=== PATIENT | male | born 1970 | race Hispanic/Latino ===

== ENCOUNTER 2016-05-06 15:53 | Emergency (ER) | payer OTHER ==
[~2016-05-06] VITALS: Ht 162.6 cm; Wt 68.0 kg
--- NOTE | 2016-05-06 16:16 | ED GI/GU/ABDOMINAL COMPLAINT ---
History of Present Illness General Chief Complaint: Abdominal Pain/Flank Pain Stated Complaint: LOWER ABD PAIN Source: patient, family, old records, assortment planner Exam Limitations: language barrier Vital Signs & Intake/Output Vital Signs & Intake/Output Vital Signs Date Time Temp Pulse Resp B/P Pulse O2 O2 Flow FiO2 Ox Delivery Rate 05/06 1953 78 16 115/66 96 Room Air 05/06 1902 97.3 78 18 137/74 97 Room Air 05/06 1743 76 20 134/80 98 Room Air 05/06 1600 97.7 76 16 157/78 98 Room Air Allergies Coded Allergies: No Known Allergies (05/06/16) Reconcile Medications Oxycodone HCl/Acetaminophen (Percocet 5-325 MG Tablet) 5 MG-325 MG TABLET 1 TAB PO BID PRN PAIN Temazepam (Restoril) 30 MG CAPSULE 1 CAP PO QPM SLEEP (Reported) Triage Note: PT IS HAVING PAIN IN HIS TESTICLES AND BLADDER. PT HAVING PROBLEMS URINATING. PT STATES HE VOIDED 2 HOURS AGO ONLY A LITTLE. PT IS MOVING HIS BOWELS BUT STATES IT HURTS TO . PT STATES THE PAIN ALL STARTED 3 WEEKS AGO. PT STATES HIS PAIN HAS INCREASED TODAY TO THE POINT HE CAN'T TOLERATE IT. Triage Nurses Notes Reviewed? yes Onset: Abrupt Duration: day(s): (WORSE X 3 DAYS), week(s): (3) Timing: recent history Quality/Severity: aching, burning, moderate Severity Numbers: 7 Location: suprapubic, scrotal Radiation: no radiation Activities at Onset: none Prior Abdominal Problems: none No Modifying Factors: none Associated Symptoms: DENIES HPI: This is a 46-year-old male with history of kidney stones presents with family for evaluation complaining of suprapubic abdominal pain that is radiating into his groin and testicles. He states the pain has been present for the past 2 weeks however worse over the past 3 days. He denies any nausea or vomiting and states his symptoms improve after urinating. He denies any nausea vomiting diarrhea. No change in his bowel movements no rectal pain. No new sexual partners no rashes to his skin. He denies any swelling to his scrotum. No history of abdominal surgeries in the past no chest pain or shortness of breath. No hematuria, no dysuria (LORIN QIU,SUKHJINDER) Past History Travel History Traveled to [place] past 21 day No Medical History Any Pertinent Medical History? see below for history Renal: KIDNEY STONES Surgical History Surgical History: non-contributory Psychosocial History What is your primary language Portuguese Tobacco Use: Never used ETOH Use: occasional use Illicit Drug Use: denies illicit drug use Family History Hx Contributory? No (SUKHJINDER STALLINGS) Review of Systems Review of Systems Constitutional: Reports: see HPI. All Other Systems: Reviewed and Negative Comments Review of systems: See HPI, All other systems negative. Constitutional, no chills no fever, no malaise HEENT: No visual changes no sore throat no congestion, no ear pain Cardiovascular: No chest pain , no palpitation Skin, no rashes, no change in skin Respiratory: No dyspnea no cough no sputum GI: No nausea no vomiting, no diarrhea, : No dysuria No hematuria, Muscle skeletal: No joint pain, no joint swelling, no back pain Neurologic: no headache Psych: No stress Heme/endocrine: No bruising no bleeding Immunology: No lymphadenopathy (SUKHJINDER STALLINGS) Physical Exam Physical Exam General Appearance: well developed/nourished, alert, awake Gastrointestinal: normal bowel sounds, soft, non-tender Comments: Well-developed well-nourished person in no acute distress HEENT: Normal EENT exam; PERRL, EOMI, HEAD is atraumatic. moist mucous membranes. Neck: Supple, normal range of motion Back: Nontender, no CVA tenderness. Full range of motion Cardiovascular: Regular rate and rhythms no murmurs rubs Respiratory: Chest nontender.There were no bony deformities, no asymmetry. No respiratory distress. Patient speaking in full complete sentences. Breath sounds clear to auscultation bilaterally: NO W/R/R Abdomen: Soft, suprapubic tenderness no palpable hernia nondistended, no appreciable organomegaly. Normal bowel sounds. No rebound/guarding Male : Normal external genitalia, testes nontender. No scrotal swelling or mases, No lesions/discharge. Extremity: No edema, full range of motion of extremities, Neuro: Alert oriented x3, motor sensory normal,There were no obvious focal neurologic abnormalities. Skin: No appreciable rash on exposed skin, skin is warm and dry. Psych: Mood and affect is normal, memory and judgment is normal. Core Measures ACS in differential dx? No Severe Sepsis Present: No Septic Shock Present: No (SUKHJINDER STALLINGS) Progress Differential Diagnosis: bowel obstruction, inflamm bowel dis, orchitis, prostatitis, perforated viscous, pyelonephritis, SBO, STD, testicular torsion, ureterolithiasis, urinary retention, urethritis, UTI/pyelo Plan of Care: Orders Procedure Date/time Status COMPREHENSIVE METABOLIC PANEL 05/06 1625 Complete CBC WITHOUT DIFFERENTIAL 05/06 162 Complete URINALYSIS 05/06 1611 Complete Laboratory Tests 05/06/16 1630: Anion Gap 14, Estimated GFR > 60, BUN/Creatinine Ratio 14.4, Glucose 109 H, Calcium 9.8, Total Bilirubin 0.7, AST 22, ALT 27, Alkaline Phosphatase 86, Total Protein 8.0, Albumin 4.5, Globulin 3.5, Albumin/Globulin Ratio 1.3, CBC w Diff NO MAN DIFF REQ, RBC 5.50, MCV 89.4, MCH 29.8, RDW 13.2, MPV 8.1, Gran % 71.0, Lymphocytes % 18.6 L, Monocytes % 8.7, Eosinophils % 1.4, Basophils % 0.3, Absolute Granulocytes 7.1 H, Absolute Lymphocytes 1.9, Absolute Monocytes 0.9 H, Absolute Eosinophils 0.1, Absolute Basophils 0, PUBS MCHC 33.3, Urine Color YEL, Urine Clarity CLEAR, Urine pH 6.0, Ur Specific Purdys >= 1.030, Urine Protein TRACE H, Urine Ketones TRACE H, Urine Nitrite NEG, Urine Bilirubin NEG , Urine Urobilinogen 0.2, Ur Leukocyte Esterase NEG, Ur Microscopic SEDIMENT EXAMINED, Urine RBC RARE, Urine Mucus RARE, Urine Hemoglobin NEG, Urine Glucose NEG Labs ordered old records reviewed patient making a Toradol 30 IV Dilaudid 1 mg IV 05/06/2016 5:43:28 PM discussed with the patient at length all of his lab results CT findings he reports the pain improved however is not returning. He clinically appears well EP Dilaudid 1 mg IV ordered ultrasound ordered, case d/w dr aleman 05/06/2016 7:15:33 PM discussed with the patient at length all of his ultrasound findings. Patient reports symptoms have improved he is visiting from [place] I provided him with primary care follow-up while he is here for the next month I advised however that if the symptoms worsen or he develops fever chills nausea vomiting or any other concerns to return to the emergency room. Discussed with them that there is no clear identified source for the patient's symptoms at this time for bland diet clear liquids. Close follow-up advised return with any concerns. We'll plan I discussed with the patient at length all of their results, need for close follow up with their primary care physician. This week. I answered all of their questions, they feel comfortable with the plan and follow-up care. I discussed the medications that they will receive with the patient. I gave them signs and symptoms that could indicate an adverse reaction. I have advised them to limit their activities until they can see how they respond to the medication. (LORIN QIU,SUKHJINDER) Diagnostic Imaging: Viewed by Me: CT Scan. Discussed w/RAD: CT Scan. Radiology Impression: PATIENT: SORAYA ROSENTHAL PRESENT AGE: 46 PATIENT ACCOUNT NO: [id number] : 69 LOCATION: [facility] ORDERING PHYSICIAN: SUKHJINDER QIU SERVICE DATE: 05/06/16 EXAM TYPE: CAT - CT ABD & PELVIS W/O IV CONTRAS EXAMINATION: CT ABDOMEN AND PELVIS WITHOUT CONTRAST CLINICAL INFORMATION: Left lower quadrant abdominal pain. COMPARISON: None. TECHNIQUE: Multidetector volumetric imaging was performed from the superior aspect of the liver through the pubic symphysis. Sagittal and coronal reformatted images were obtained on the technologist's workstation. DLP: 305.29 mGy-cm. FINDINGS: LUNG BASES: The visualized lung bases are unremarkable. LIVER, GALLBLADDER, AND BILIARY TREE: The liver is normal in size, shape, and attenuation. No focal hepatic lesion or biliary ductal dilatation is present. Status post cholecystectomy. PANCREAS: Unremarkable. SPLEEN: Unremarkable. ADRENAL GLANDS: Unremarkable. KIDNEYS AND URETERS: Less than 1 mm size stone in the midpole left kidney axial image 228 (3). No additional renal stone. No ureteral stone. No hydronephrosis. BLADDER: Unremarkable. GASTROINTESTINAL TRACT : The small and large bowel are unremarkable. The appendix is unremarkable. ABDOMINAL WALL: No significant hernia is appreciated. LYMPH NODES: Normal. VASCULAR: Unremarkable. PELVIC VISCERA: Unremarkable. OSSEOUS STRUCTURES: Unremarkable. IMPRESSION: No acute abnormality CT scan abdomen pelvis. DICTATED BY: SOMAR BATISTA MD DATE/TIME DICTATED:05/06/161716 ASSORTMENT PLANNER:CLEMENTE DATE/TIME TRANSCRIBED:05/06/161716 CONFIDENTIAL, DO NOT COPY WITHOUT APPROPRIATE AUTHORIZATION. <Electronically signed in Other Vendor System> SIGNED BY: OSMAR BATISTA MD 05/06/161731, PATIENT: SORAYA ROSENTHAL PRESENT AGE: 46 PATIENT ACCOUNT NO: [id number] : LOCATION: [facility] ORDERING PHYSICIAN: SUKHJINDER QIU SERVICE DATE: -1737 EXAM TYPE: US - US-TESTICULAR EXAMINATION: US SCROTUM CLINICAL INFORMATION: Bilateral testicular pain. Evaluate for torsion. COMPARISON: None. TECHNIQUE: A sonogram of the scrotum was performed assessing mcintyre-scale appearance and color Doppler flow. FINDINGS: RIGHT: Right testicle measures 5.4 x 2.8 x 3.3 cm, volume 35.4 mL. Parenchymal echotexture is normal. No focal testicular parenchymal lesions are visualized. Normal symmetric intratesticular flow is visualized. Right epididymal head is normal in size. Trace amount of fluid is seen in the right scrotal sac, likely physiologic. No significant hydrocele. Slightly dilated veins are seen in the right hemiscrotum, consistent with a small varicocele. LEFT: Left testicle measures 5.2 x 2.5 x 3.6 cm, volume 33.2 mL. Parenchymal echotexture is normal. No focal testicular parenchymal lesions are visualized. Normal symmetric intratesticular flow is visualized. Left epididymal head is normal in size. Trace amount of physiologic free fluid is seen in the left hemiscrotum. No left hydrocele or varicocele is seen. IMPRESSION: 1. No evidence of testicular torsion or epididymoorchitis. 2. Small right-sided varicocele. DICTATED BY: LATASHA ANGEL MD DATE/TIME DICTATED:1855 ASSORTMENT PLANNER:CLEMENTE DATE/TIME TRANSCRIBED:05/06/161855 CONFIDENTIAL, DO NOT COPY WITHOUT APPROPRIATE AUTHORIZATION. <Electronically signed in Other Vendor System> SIGNED BY: LATASHA ANGEL MD 05/06/161903 Initial ED EKG: none (LORIN QIU,SUKHJINDER) Departure Departure Time of Disposition: 1908 Disposition: HOME OR SELF CARE Condition: Stable Clinical Impression Primary Impression: Abdominal pain Secondary Impressions: Varicocele Referrals: PATIENT HAS NO PRIMARY CARE DR (PCP/Family) Additional Instructions: Follow-up with your primary care physician on Saturday. Percocet for breakthrough pain return with any concerns Departure Forms: Customer Survey General Discharge Information Prescriptions: Current Visit Scripts Oxycodone HCl/Acetaminophen (Percocet 5-325 MG Tablet) 1 TAB PO BID PRN PAIN #10 TAB (SUKHJINDER STALLINGS) PA/HOPPER FEEDER Co-Sign Statement Statement: ED Attending supervision documentation- [] I saw and evaluated the patient. I have also reviewed all the pertinent lab results and diagnostic results. I agree with the findings and the plan of care as documented in the PA's/HOPPER FEEDER's documentation. X I have reviewed the ED Record and agree with the PA's/HOPPER FEEDER's documentation. [] Additions or exceptions (if any) to the PAs/HOPPER FEEDER's note and plan are summarized below: [] (ALEE JIMENEZ,MAHESH)
[2016-05-06] MEDS ORDERED: RESTORIL30 M1 PO (16:40)
[2016-05-06 16:43] LABS: ABSOLUTE BASOPHIL COUNT 0 /CUMM (0.0-0.2); ABSOLUTE EOSINOPHIL COUNT 0.1 /CUMM (0.0-0.7); ABSOLUTE GRANULOCYTE CT 7.1 /CUMM (1.4-6.5); ABSOLUTE LYMPH COUNT 1.9 /CUMM (1.2-3.4); ABSOLUTE MONOCYTE COUNT 0.9 /CUMM (0.10-0.60); BASOPHIL % 0.3 % (0.0-2.0); EOSINOPHIL % 1.4 % (0-5); HEMATOCRIT 49.2 % (42-52); MEAN CORPUSCULAR HGB 29.8 PG (27.0-31.0); MEAN CORPUSCULAR HGB CONC 33.3 G/DL (33.0-37.0); MEAN CORPUSCULAR VOLUME 89.4 FL (80.0-94.0); MEAN PLATELET VOLUME 8.1 FL (7.4-10.4); PLATELET COUNT 345 /CUMM (130-400); RBC DISTRIBUTION WIDTH 13.2 % (11.5-14.5)
--- NOTE | 2016-05-06 17:32 | CT SCAN REPORT ---
EXAMINATION: CT ABDOMEN AND PELVIS WITHOUT CONTRAST CLINICAL INFORMATION: Left lower quadrant abdominal pain. COMPARISON: None. TECHNIQUE: Multidetector volumetric imaging was performed from the superior aspect of the liver through the pubic symphysis. Sagittal and coronal reformatted images were obtained on the technologist's workstation. DLP: 305.29 mGy-cm. FINDINGS: LUNG BASES: The visualized lung bases are unremarkable. LIVER, GALLBLADDER, AND BILIARY TREE: The liver is normal in size, shape, and attenuation. No focal hepatic lesion or biliary ductal dilatation is present. Status post cholecystectomy. PANCREAS: Unremarkable. SPLEEN: Unremarkable. ADRENAL GLANDS: Unremarkable. KIDNEYS AND URETERS: Less than 1 mm size stone in the midpole left kidney axial image 228 (3). No additional renal stone. No ureteral stone. No hydronephrosis. BLADDER: Unremarkable. GASTROINTESTINAL TRACT: The small and large bowel are unremarkable. The appendix is unremarkable. ABDOMINAL WALL: No significant hernia is appreciated. LYMPH NODES: Normal. VASCULAR: Unremarkable. PELVIC VISCERA: Unremarkable. OSSEOUS STRUCTURES: Unremarkable. IMPRESSION: No acute abnormality CT scan abdomen pelvis.
--- NOTE | 2016-05-06 19:04 | ULTRASOUND REPORT ---
EXAMINATION: US SCROTUM CLINICAL INFORMATION: Bilateral testicular pain. Evaluate for torsion. COMPARISON: None. TECHNIQUE: A sonogram of the scrotum was performed assessing mcintyre-scale appearance and color Doppler flow. FINDINGS: RIGHT: Right testicle measures 5.4 x 2.8 x 3.3 cm, volume 35.4 mL. Parenchymal echotexture is normal. No focal testicular parenchymal lesions are visualized. Normal symmetric intratesticular flow is visualized. Right epididymal head is normal in size. Trace amount of fluid is seen in the right scrotal sac, likely physiologic. No significant hydrocele. Slightly dilated veins are seen in the right hemiscrotum, consistent with a small varicocele. LEFT: Left testicle measures 5.2 x 2.5 x 3.6 cm, volume 33.2 mL. Parenchymal echotexture is normal. No focal testicular parenchymal lesions are visualized. Normal symmetric intratesticular flow is visualized. Left epididymal head is normal in size. Trace amount of physiologic free fluid is seen in the left hemiscrotum. No left hydrocele or varicocele is seen. IMPRESSION: 1. No evidence of testicular torsion or epididymoorchitis. 2. Small right-sided varicocele.
[2016-05-06] MEDS ORDERED: PERCOCET 5-3251 EACH PO (19:13)
[2016-05-06 19:54] VITALS: BP 115/66
== END 2016-05-06 19:55 ==
LOC: ERH 15:53
PROVIDERS: Physician Assistant Medical
DX: I86.1 Scrotal varices (principal)
CPT/HCPCS: 74176; 81001; 96374; 96375; 96376; J1885; J3101